=== PATIENT | female | born 2000 | race Caucasian/White ===

== ENCOUNTER 2020-01-27 18:50 | Emergency (ER) | payer MEDICAID ==
[~2020-01-27] VITALS: Ht 152.4 cm; Wt 59.1 kg
[2020-01-27] MEDS ORDERED: LIDOCAINE/PF 1% 2 ML VIAL IM ONE (19:45)
[2020-01-27] MEDS ORDERED: CefTRIAXone SODIUM 1 GM/VIAL IM ONE (19:45)
[2020-01-27] MEDS ORDERED: IBUPROFEN 600 MG TABLET PO ONE (20:00)
[2020-01-27 20:22] VITALS: BP 130/80
== END 2020-01-27 20:24 | disposition home or self-care (01) ==
LOC: EMS 18:50
DX: J03.00 Acute streptococcal tonsillitis, unspecified (principal); Z20.828 Contact with and (suspected) exposure to other viral communicable diseases
CPT/HCPCS: 96372; 99283; J0696; J3490; U0003

== ENCOUNTER 2020-02-08 20:16 | Emergency (ER) | payer MEDICAID ==
[~2020-02-08] VITALS: Ht 152.4 cm; Wt 59.1 kg
[2020-02-08] MEDS ORDERED: AMOX500T2 PO (20:23)
[2020-02-08 23:53] LABS: COVID AG,FIA SOURCE NASOPHARYNGEAL
[2020-02-09 00:28] LABS: RAPID GROUP A STREP NEGATIVE (NEGATIVE)
[2020-02-09 00:42] VITALS: BP 115/58
== END 2020-02-09 02:10 | disposition left against medical advice (07) ==
LOC: EMS 20:16
DX: J02.9 Acute pharyngitis, unspecified (principal); Z20.828 Contact with and (suspected) exposure to other viral communicable diseases
CPT/HCPCS: 87426; 87430

== ENCOUNTER 2020-02-15 14:43 | Emergency (ER) | payer MEDICAID ==
[~2020-02-15] VITALS: Ht 167.6 cm; Wt 61.4 kg
[~2020-02-15 14:43] MED LIST: AMOX500T2 PO
[2020-02-15 14:44] VITALS: BP 126/62
== END 2020-02-15 15:10 | disposition home or self-care (01) ==
LOC: EMS 14:44
DX: Z02.89 Encounter for other administrative examinations (principal); Z86.19 Personal history of other infectious and parasitic diseases
CPT/HCPCS: Z7502

== ENCOUNTER 2020-02-23 19:15 | Emergency (ER) | payer MEDICAID ==
[~2020-02-23] VITALS: Ht 154.9 cm; Wt 52.3 kg
[2020-02-23] MEDS ORDERED: DEXAMETHASONE SOD PHOS 4 MG/ML 5 ML VIAL IVP ONE (19:30)
[2020-02-23] MEDS ORDERED: ACETAMINOPHEN 325 MG TABLET PO ONE (19:30)
[2020-02-23] MEDS ORDERED: SODIUM CHLORIDE 0.9% 1,000 ML IV ONE (19:30)
[2020-02-23] MEDS ORDERED: KETOROLAC TROMETHAMINE 30 MG/ML VIAL IVP ONE (19:30)
[2020-02-23] MEDS ORDERED: ONDANSETRON HCL 4 MG/2 ML VIAL ONE (20:11)
[2020-02-23] MEDS ORDERED: ONDANSETRON HCL 4 MG/2 ML VIAL IVP ONE (20:15)
[2020-02-23 20:37] LABS: HEMATOCRIT 39.3 % (36-46); HEMOGLOBIN 13.5 g/dL (12.0-16.0); MEAN CORPUSCULAR HEMOGLOBIN 31.3 pg (26.0-34.0); MEAN CORPUSCULAR HGB CONC 34.3 G/dL (31.0-37.0); MEAN CORPUSCULAR VOLUME 91 fL (80-100); PLATELET COUNT (AUTO) 195 K/uL (150-450); RED BLOOD CELL COUNT(AUTO) 4.32 MIL/uL (4.00-5.20)
[2020-02-23 20:46] LABS: ANION GAP 7 mmol/L (8-16); CALCIUM, TOTAL 9.2 mg/dL (8.8-10.5); CARBON DIOXIDE 27 mmol/L (22-29); CHLORIDE 98 mmol/L (98-107); CREATININE 0.81 mg/dL (0.60-1.30); GLOMERULAR FILTR. RATE CALC > 60 mL/min (>60); GLUCOSE,RANDOM 101 mg/dL (70-110); POTASSIUM 3.6 mmol/L (3.5-5.1); SODIUM SERUM 132 mmol/L (136-145); UREA NITROGEN, BLOOD 8 mg/dL (7-18)
[2020-02-23 20:57] LABS: HCG,QUANTITATIVE < 1 mIU/mL (0-6)
[2020-02-23 20:59] LABS: BAND NEUTROPHILS % (MANUAL) 8 % (0-5); LYMPHOCYTES % (MANUAL) 6 % (22-44); MONOCYTES % (MANUAL) 8 % (2-9); SEGMENTED NEUTROPHILS % 78 % (40-70)
[2020-02-23] MEDS ORDERED: CefTRIAXone SODIUM 250 MG in DEXTROSE 5%-WATER 50 ML IV ONE (21:15)
[2020-02-23] MEDS ORDERED: AZITHROMYCIN 500 MG TABLET PO ONE (21:15)
[2020-02-23 21:30] VITALS: BP 115/60
== END 2020-02-23 21:50 | disposition home or self-care (01) ==
LOC: EMS 19:15
DX: J02.9 Acute pharyngitis, unspecified (principal); R50.9 Fever, unspecified
CPT/HCPCS: 36415; 80048; 84702; 85025; 87081; 87430; 87491; 87591; 96361; 96365; 96375; 99284; J0696; J1100; J1885; J2405; J7030; J7060